=== PATIENT | male | born 1960 | race Caucasian/White ===

== ENCOUNTER 2017-04-25 06:27 | Observation (INO) | payer BC ==
[2017-04-24 10:28] VITALS: BP 177/91
[2017-04-24 11:15] LABS: BLOOD UREA NITROGEN 8 mg/dL (7-18)
[2017-04-24 11:19] LABS: ASPARTATE AMINO TRANSFERASE 27 U/L (15-37)
[~2017-04-25] VITALS: Ht 180.3 cm; Wt 132.6 kg
[~2017-04-25 06:27] MED LIST: ASPI-496 PO; ATOR20TA PO; LISI-170 PO; METO50TA82 PO; MONT10TA6 PO
[2017-04-25] MEDS ORDERED: SODIUM CHLORIDE 0.9% 1,000 ML IV SCH (06:41)
[2017-04-25] MEDS ORDERED: FENTANYL PF 250 MCG/5ML ONE (08:17)
[2017-04-25] MEDS ORDERED: MIDAZOLAM 1 MG/ML, 5ML ONE (08:17)
[2017-04-25] MEDS ORDERED: BUPIVACAINE 0.25% ONE (08:40)
[2017-04-25] MEDS ORDERED: ISOPROTERENOL 0.2MG/ML, 5ML ONE (08:56)
[2017-04-25] MEDS ORDERED: HEPARIN 1,000 UNITS/ML, 10ML ONE (09:37)
[2017-04-25] MEDS ORDERED: PROTAMINE SULFATE 10 MG/ML, 5ML ONE (10:51)
[2017-04-25] MEDS ORDERED: ZOLPIDEM 5MG TABLET PO PRN (11:30)
[2017-04-25] MEDS ORDERED: ACETAMINOPHEN 325 MG TABLET PO PRN ×3 (11:30→14:00)
[2017-04-25] MEDS ORDERED: OXYcodone 5 MG/5 ML ORAL.SOL UDC PO PRN (12:00)
[2017-04-25] MEDS ORDERED: ALBUTEROL/IPRATROPIUM 2.5MG/0.5MG, 3 ML NPPB PRN (12:00)
[2017-04-25] MEDS ORDERED: hydrALAzine 20 MG/ML, 1ML IV PRN (12:00)
[2017-04-25] MEDS ORDERED: HYDROmorphone 1 MG/ML, 1ML IV PRN (12:00)
[2017-04-25] MEDS ORDERED: PROMETHAZINE 25 MG/ML, 1ML IV PRN (12:00)
[2017-04-25] MEDS ORDERED: ONDANSETRON 2MG/ML, 2ML IVPush PRN (12:00)
[2017-04-25] MEDS ORDERED: FENTANYL PF 100 MCG/2ML IV PRN (12:00)
[2017-04-25] MEDS ORDERED: ACETAMINOPHEN 325 MG/10.15 ML UDC ONE (12:06)
[2017-04-25] MEDS ORDERED: ACETAMINOPHEN 650 MG/20.3 ML UDC ONE (12:06)
[2017-04-25] MEDS ORDERED: OXYcodone 5 MG/5 ML ORAL.SOL UDC ONE (12:07)
[2017-04-25 14:03] VITALS: BP 138/82
[2017-04-25] MEDS ORDERED: NEOSTIGMINE 1 MG/ML, 10ML ONE (16:12)
[2017-04-25] MEDS ORDERED: DEXAMETHASONE 4 MG/ML, 1ML ONE (16:12)
[2017-04-25] MEDS ORDERED: ONDANSETRON 2MG/ML, 2ML ONE (16:12)
[2017-04-25] MEDS ORDERED: SUCCINYLCHOLINE 20 MG/ML, 10ML ONE (16:12)
[2017-04-25] MEDS ORDERED: PROPOFOL 10 MG/ML, 20ML ONE (16:12)
[2017-04-25] MEDS ORDERED: PHENYLEPHRINE 10 MG/ML ONE (16:12)
[2017-04-25] MEDS ORDERED: ROCURONIUM 10 MG/ML ONE (16:12)
[2017-04-25] MEDS ORDERED: GLYCOPYRROLATE 0.2MG/1ML ONE (16:12)
[2017-04-25] MEDS: METOPROLOL TARTRATE 50 MG TABLET PO SCH (17:34)
[2017-04-25 20:35] VITALS: BP 126/70
[2017-04-25] MEDS: LISINOPRIL 20 MG TABLET PO SCH (20:36)
[2017-04-25] MEDS ORDERED: MONTELUKAST 10 MG TABLET PO SCH (21:00)
[2017-04-25] MEDS ORDERED: ATORVASTATIN 20 MG TABLET PO SCH (21:00)
[2017-04-26 01:41] VITALS: BP 132/73
[2017-04-26] MEDS ORDERED: ASPIRIN 81 MG TABLET EC PO SCH (06:00)
[2017-04-26] MEDS: METOPROLOL TARTRATE 50 MG TABLET PO SCH (06:03)
[2017-04-26 08:46] VITALS: BP 145/78
[2017-04-26] MEDS: LISINOPRIL 20 MG TABLET PO SCH (08:49)
== END 2017-04-26 09:53 | disposition home or self-care (01) ==
LOC: CACL 06:27 → ORIP 11:08 → 5SO 13:00 → DCLOUNGE 04-26 09:42
PROVIDERS: ADMIT Internal Medicine Cardiovascular Disease; ATTEND Internal Medicine Cardiovascular Disease
DX: I49.3 Ventricular premature depolarization (principal); E13.9 Other specified diabetes mellitus without complications; I10 Essential (primary) hypertension; E78.5 Hyperlipidemia, unspecified
CPT/HCPCS: 36415; 71020; 80053; 85025; 85347; 85610; 85730; 93005; 93623; 93654; C1730; C1732; C1894; G0378; J0330; J1100; J2250; J2370; J2405; J2704; J2710; J2720; J3010; J3490; 93621; J1644

== ENCOUNTER 2019-01-31 13:12 | Emergency (ER) | payer BC, OTHER ==
[~2019-01-31] VITALS: Ht 180.3 cm; Wt 132.6 kg
[2019-01-31 13:35] VITALS: BP 164/98
[2019-01-31] MEDS ORDERED: SODIUM CHLORIDE FLUSH 10ML SYR IVF ONE (14:00)
[2019-01-31 14:05] LABS: BASOPHILS # (AUTO) 0.05 x10^3/uL (0-0.1); BASOPHILS % (AUTO) 1 % (0-1); EOSINOPHILS # (AUTO) 0.19 x10^3/uL (0-0.4); EOSINOPHILS % (AUTO) 2 % (1-7); LYMPHOCYTES # (AUTO) 2.35 x10^3/uL (1-3.4); LYMPHOCYTES % (AUTO) 25 % (22-44); MD NO; MEAN CORPUSCULAR HEMOGLOBIN 31.4 pg (27.5-34.5); MEAN CORPUSCULAR HGB CONC 33.5 g/dL (33.2-36.2); MEAN CORPUSCULAR VOLUME 93.9 fL (81-97); MEAN PLATELET VOLUME 8.3 fL (7.4-10.4); MONOCYTES # (AUTO) 0.95 x10^3/uL (0.2-0.8); MONOCYTES % (AUTO) 10 % (2-9); NEUTROPHILS # (AUTO) 5.79 x10^3/uL (1.8-6.8); NEUTROPHILS % (AUTO) 62 % (42-75); PLATELET COUNT 288 x10^3/uL (130-400); RED CELL DISTRIBUTION WIDTH 12.8 % (9.4-14.8)
[2019-01-31 14:13] LABS: ALBUMIN 3.7 g/dL (3.4-5.0); ANION GAP 7 mmol/L (5-15); CALCIUM 9.1 mg/dL (8.5-10.1); CHLORIDE 109 mmol/L (98-107)
[2019-01-31 14:17] LABS: ALANINE AMINOTRANSFERASE 66 U/L (12-78); ALKALINE PHOSPHATASE 54 U/L (45-117); BILIRUBIN,TOTAL 0.5 mg/dL (0.2-1.0); CREATININE 1.03 mg/dL (0.7-1.3); TOTAL PROTEIN 7.7 g/dL (6.4-8.2)
[2019-01-31] MEDS ORDERED: TELM80TA PO (14:23)
[2019-01-31 14:54] LABS: MICROSCOPIC NOT IND
[2019-01-31 14:58] LABS: CULTURE INDICATED? NO
== END 2019-01-31 16:18 | disposition home or self-care (01) ==
LOC: ED 15:31
DX: I86.1 Scrotal varices (principal); R10.84 Generalized abdominal pain; Z87.891 Personal history of nicotine dependence
CPT/HCPCS: 36415; 74021; 76870; 80053; 81003; 82962; 83690; 85025; 99284